=== PATIENT | female | born 1995 | race Caucasian/White ===

== ENCOUNTER → 2018-06-28 16:42 | Outpatient (CLI) | payer OTHER, SELFPAY ==
[2018-06-28 18:36] LABS: Vitamin B12 466 pg/mL (211-911); Vitamin D,25 Hydroxy 43.2 ng/mL (29.95-100.01)
[2018-06-28 19:14] LABS: Chlamydia Trachomatis by PCR Negative (Negative); Neisserai gonorrhoeae by PCR Negative (Negative); Probe Check PASS; Sample Adequacy Control PASS; Specimen Processing Control PASS
[2018-07-03 16:34] LABS: HPV Reflexed? NOT INDICATED
--- OUTSIDE RECORDS SUMMARY | 2018-09-02 12:07 | XMS RPT_ITS ---
:1995 Author Organization [facility] Care Team Providers Name Role Phone Jocelyn Braden Attending Unavailable Vickey Loza Attending Unavailable Primay Care Physicia, No Primary Care Unavailable PROBLEMS PROBLEMS DATE TYPE CONDITION / CODE ATTENDING STATUS SOURCE 06/28/2018 Unknown Z11.3 - Encounter Rose Braden for screening for [facility] infections with a Hospital predominantly Repository sexual mode of transmission / Z11.3(ICD-10) 06/28/2018 Unknown Z12.4 - Encounter Rose Braden for screening for [facility] malignant neoplasm Hospital of cervix / Repository Z12.4(ICD-10) 06/28/2018 Unknown Z01.419 - Encounter Rose Braden for gynecological [facility] examination Hospital (general) (routine) Repository without abnormal findings / Z01.419(ICD-10) 06/28/2018 Unknown E55.9 - Vitamin D Rose Braden deficiency, [facility] unspecified / Hospital E55.9(ICD-10) Repository PROCEDURES PROCEDURES No Procedure Records FoundRESULTS RESULTS EMERGENCY DEPARTMENT Observed: 07/06/2018 Status: F Source: [place] SUMMARY 11:19 PM [facility] REPOSITORY [facility] Medical Records Department [address] [place] [address] Emergency Department Summary 07/06/18 1935 MR#: [id number] Acct: [id number] Name: CATHERINE MARTINEZ Rep #: [id number] : 1995 From: Vickey Loza MD PCP: Care Physician, No Primary Status: DEP ER - ER Visit Summary Date of Service: 07/06/18 Chief Complaint: Possible occupational exposure History of Present Illness: The patient is a 22 F presenting due to concern for potential occupational exposure. Patient works at [employer], and had a child visit with her father known to be a fentanyl user. She reports that he was heavily intoxicated during the visit, and she did have to touch a couple of the things that he brought in including [place] bears for his kid in some clothing. Patient reports that about 1/2-hour to an hour after he left she had an onset of a headache. She reports that this was relatively gradual in onset, was a generalized headache, and then was associated with about 4-5 hours of blurry vision and photophobia afterwards. She states that she went to bed, and the headaches seem to feel better. She currently is menstruating. She does not really have a history of headaches in the past, denies any head injuries fevers or any neurologic signs or symptoms. Physical Examination: Vital signs are within normal limits, patient is afebrile. General: Patient is well-nourished well-developed and in no acute distress. Head: Normocephalic, atraumatic Eyes: Pupils equal round and reactive bilaterally, extra occular motion intact bialterally ENT: Moist mucous membranes Neck: Supple, no lymphadenopathy, no JVD, no meningismus CVS: Heart regular rate and rhythm, no murmurs, rubs or gallops, radial pulses 2+ bilaterally Resp: Respirations nondistressed, lung sounds clear bilaterally Abdomen: Soft, nontender, nondistended, no palpable masses, normal bowel sounds Back: Nontender Extremities: Nontender, atraumatic, active full range of motion, no peripheral edema Skin: warm, no rashes, no petechia Neuro: Alert and oriented x 4, CN 2-12 intact, no lateralizing neurological defecits Psyc: Normal affect Test Results: Toxicology screen pending Emergency Department Course and Treatment: Present patient presented secondary to a possible occupational exposure. If the patient was actually exposed to fentanyl like she thought, I do not believe that an exposure over 8 hours ago would be presenting with normal signs and symptoms at this point. Patient likely had an onset of a migraine headache. Toxicology was sent at the request of the patient's employer, and the patient was discharged. Disposition: Discharge Impression: 1. Potential occupational exposure This note was generated with spotflux dictation software. It may contain incorrect words, spelling, and punctuation that were not noted in review of the chart prior to signing ED Disposition - Plan for ED Patient: Disposition: Home or Assisted Living Chief Complaint: Occup Expose Diagnosis: Occupational exposure in workplace Instructions: ED Chemical Exp Skin Referrals: Corporate,Care [GROUP OF PHYSICIANS] - As Needed What to do if you have Problems For any increased pain, shortness of breath, bleeding, nausea or vomiting, chest pain, or any unexpected problems, contact your Primary Care Provider. Call [facility] ([phone]) or report to the closest Emergency Room. Call 911 if necessary. 07/06/18 [id number] <Electronically signed by Vickey Loza MD> Date Vickey Loza MD Cosigner Signature (If Indicated): Date CC: No Primary Care Physician URINE DRUG SCREEN Collected: 07/06/2018 Status: F Source: DOT (VISTA) 7:03 PM [facility] REPOSITORY TYPE CODE TESTS RESULT OUT OF RANGE REFERENCE UNITS LAB L505.0075 TO BE Normal CONFIRMED Result Comment: CONFIRMATORY TESTING FOR ALL POSITIVE URINE DRUG SCREEN RESULTS WILL ONLY BE SENT OUT UPON PHYSICIAN ORDER. VISTA Urine Drug Screen methods provide only preliminary analytical test results. A more specific alternate chemical method must be used in order to obtain a confirmed analytical result. Gas chromatography/mass spectrometery (GC/MS) is the preferred confirmatory method. Clinical consideration and professional judgement should be applied to any drug of abuse test result, particularly when preliminary positive results are used. URINE TCA TESTING MUST BE ORDERED SEPARATELY. USE TEST MNEMONIC: [facility] LAB L505.5005 VISTA UDS PH 6 Normal LAB L505.5015 <1000 ng/mL AMPHETAMINES Normal NEGATIVE LAB L505.5025 < 200 ng/mL BARBITIURATES Normal NEGATIVE LAB L505.5035 < 200 ng/mL BENZODIAZIPINE Normal NEGATIVE LAB L505.5045 < 300 ng/mL COCAINE Normal NEGATIVE LAB L505.5055 < 500 ng/mL ECSTACY Normal NEGATIVE LAB L505.5065 < 300 ng/mL METHADONE Normal NEGATIVE LAB L505.5075 < 300 ng/mL OPIATES Normal NEGATIVE LAB L505.5085 < 25 ng/mL PCP Normal NEGATIVE LAB L505.5095 < 50 ng/mL THC Normal NEGATIVE Performed By: #### L505.5000 #### [facility] [address] [place], [address] VITAMIN B12 Collected: 06/28/2018 Status: F Source: [place] 4:49 PM [facility] REPOSITORY TYPE CODE TESTS RESULT OUT OF RANGE REFERENCE UNITS LAB L503.0105 211-911 pg/mL Normal Vitamin B12 466 Performed By: #### L503.0105, L506.1000 #### [facility] [address] [place], [place], [address] VITAMIN D,25 HYDROXY Collected: 06/28/2018 Status: F Source: [place] 4:49 PM [facility] REPOSITORY TYPE CODE TESTS RESULT OUT OF RANGE REFERENCE UNITS LAB L506.1000 29.95-100.01 ng/mL Normal Vitamin D 43.2 25-OH Result Comment: Vitamin D 25(OH) Status Range Deficiency <20 ng/mL (50nmol/L) Insuffciency 20 - 30 ng/mL (50 - 75 nmol/L) Sufficiency 30 - 100 ng/mL (75 - 250 nmol/L) Toxicity >100 ng/mL (>250 nmol/L) Performed By: #### L503.0105, L506.1000 #### [facility] [address] [place], [place], [address] METHYLMALONIC ACID BLD Collected: 06/28/2018 Status: F Source: [place] 4:49 PM [facility] REPOSITORY TYPE CODE TESTS RESULT OUT OF RANGE REFERENCE UNITS LAB L7400.3000 Normal METHYLM [id number] Result Comment: TEST RESULT UNITS REF INTERVAL Methylmalonic Acid, Serum Methylmalonic Acid, Serum 139 nmol/L 0 - 378 Disclaimer: This test was developed and its performance characteristics determined by [facility]. It has not been cleared or approved by the Food and Drug Administration. TESTING PERFORMED AT [facility]. ORIGINAL REPORT ON FILE IN LAB CONTAINS ADDITIONAL TEST SITE INFORMATION. Performed By: #### L7400.3000 #### [facility] (refer to report for specific site) refer to report for address and phone number CT/NG [facility] BY PCR Collected: 06/28/2018 Status: F Source: [place] 2:10 PM [facility] REPOSITORY TYPE CODE TESTS RESULT OUT OF RANGE REFERENCE UNITS LAB L8200.2100 Negative Normal Chlam Negative Trac PCR LAB L8200.2200 Negative Normal NG by Negative PCR Performed By: #### L8200.2000 #### [facility] [address] [place], [address] PAP I-G W/RFX Collected: 06/28/2018 Status: F Source: [place] HRHPV-APTIMA 2:10 PM [facility] REPOSIT[facility] Order Comment: CYTOLOGY INFORMATION: - CLINICAL INFORMATION: - DATE LMP/MENOPAUSE: 05/09/18 LMP - COLLECTION VIAL: Thin Prep Vial - RADIO TIME BUYER SOURCE: CERVICAL/ENDOCERVICAL - COLLECTION TECHNIQUE: BRUSH/SPATULA Specimen Comment: [id number] Specimen Comment: Source.............Cervix;Endocervix Specimen Comment: LMP / Prev Treat...TAM=[id number] Specimen Comment: No. of containers..01 ThinPrep Vial TYPE CODE TESTS RESULT OUT OF RANGE REFERENCE UNITS LAB L7400.0800 . Normal DIAGN Comment Result Comment: NEGATIVE FOR INTRAEPITHELIAL LESION OR MALIGNANCY. THIS SPECIMEN WAS RESCREENED PART OF OUR RAIL FLAW DETECTOR OPERATOR PROGRAM. LAB L7400.0900 . Normal ADEQ Comment Result Comment: Satisfactory for evaluation. Endocervical and/or squamous metaplastic cells (endocervical component) are present. LAB L7400.1400 . Normal PERFORM Comment Result Comment: Yamilet Downs, Production Coordinator LAB L7400.1500 . Normal QC Comment REV Result Comment: Amanda Hutson, Supervisory Production Coordinator (ASCP) LAB L7400.2575 . Normal TEST METHOD Comment Result Comment: This liquid based ThinPrep(R) pap test was screened with the use of an image guided system. LAB L7400.2600 . Normal . COMM LAB L7400.2700 . Normal PAPSMR Comment Result Comment: The Pap smear is a screening test designed to aid in the detection of premalignant and malignant conditions of the uterine cervix. It is not a diagnostic procedure and should not be used as the sole means of detecting cervical cancer. Both false-positive and false-negative reports do occur. LAB L7400.2800 . Normal HPV RFLX Comment Result Comment: The HPV DNA reflex criteria were not met with this specimen result therefore, no HPV testing was performed. Performed at: [address] [id number] Mica Plate Layer: Rosibel Mac MD, Phone: [phone] Performed By: #### L7400.0353 #### [facility] (refer to report for specific site) refer to report for address and phone number ALLERGIES ALLERGIES DATE TYPE / CODE NAME / CODE REACTION SEVERITY SOURCE 07/06/2018 Drug No Known Unknown [facility] Allergy/4160 Allergies/F00 Hospital [address](SNOMED 2121958(RXNOR Repository CT) M) ENCOUNTERS ENCOUNTERS ADMIT/DISCHARGE ACCOUNT ADMITTING ENCOUNTER LOCATION SOURCE NUMBER CLASS 07/06/2018/ [id number] Emergency Dot [facility] [address] [facility] ing:ED Repository 06/28/2018 [id number] Ambulatory Dot [place] [address] [facility] ing:WOBLAB Repository PAYERS PAYERS ENCOUNTER GUARANTOR PAYER SUBSCRIBER SOURCE 07/06/2018 CATHERINEYOJANA BRUSH Primary CATHERINE [place] [id number] Insurance:OB NUSSBAUMDOB: Community NATHANAEL JIMENEZ [id number] Number: Repository [id number]: [phone] [id number] [phone] (HP) [id number] [address]HA: 07/06/2018 Secondary NOT GIVENUNK [place] Insurance:SELF PAY [facility] Number: Effective Repository Date:2018-07-06 06/28/2018 CATHERINE Primary DEON [place] [id number] Insurance:[employer] [address] icy Number: [place], [place] [id number] Repository [id number]: ([phone]) Date:[id number] [phone] () [address], [place] [address]PM: 06/28/2018 Secondary NOT GIVENUNK [place] Insurance:SELF PAY [facility] Number: Effective Repository Date:2018-06-28
== END ==
PROVIDERS: Visit Provider Obstetrics & Gynecology
DX: Z12.4 Encounter for screening for malignant neoplasm of cervix (principal); Z11.3 Encounter for screening for infections with a predominantly sexual mode of transmission; E55.9 Vitamin D deficiency, unspecified; R53.83 Other fatigue
CPT/HCPCS: 36415; 82306; 82607; 83921; 87491; 87591; 87624; 88175; G0145

== ENCOUNTER 2018-07-06 18:36 | Emergency (ER) | payer OTHER, SELFPAY ==
[2018-07-06 18:37] VITALS: BP 124/79; PULSE 92; RESP 16; TEMP 36.6; O2SAT 98; BMI 24.3
--- NOTE | 2018-07-06 19:35 | ED.VISSUMM ---
- ER Visit Summary Date of Service: 07/06/18 Chief Complaint: Possible occupational exposure History of Present Illness: The patient is a 22 F presenting due to concern for potential occupational exposure. Patient works at [employer], and had a child visit with her father known to be a fentanyl user. She reports that he was heavily intoxicated during the visit, and she did have to touch a couple of the things that he brought in including [place] bears for his kid in some clothing. Patient reports that about 1/2-hour to an hour after he left she had an onset of a headache. She reports that this was relatively gradual in onset, was a generalized headache, and then was associated with about 4-5 hours of blurry vision and photophobia afterwards. She states that she went to bed, and the headaches seem to feel better. She currently is menstruating. She does not really have a history of headaches in the past, denies any head injuries fevers or any neurologic signs or symptoms. Physical Examination: Vital signs are within normal limits, patient is afebrile. General: Patient is well-nourished well-developed and in no acute distress. Head: Normocephalic, atraumatic Eyes: Pupils equal round and reactive bilaterally, extra occular motion intact bialterally ENT: Moist mucous membranes Neck: Supple, no lymphadenopathy, no JVD, no meningismus CVS: Heart regular rate and rhythm, no murmurs, rubs or gallops, radial pulses 2+ bilaterally Resp: Respirations nondistressed, lung sounds clear bilaterally Abdomen: Soft, nontender, nondistended, no palpable masses, normal bowel sounds Back: Nontender Extremities: Nontender, atraumatic, active full range of motion, no peripheral edema Skin: warm, no rashes, no petechia Neuro: Alert and oriented x 4, CN 2-12 intact, no lateralizing neurological defecits Psyc: Normal affect Test Results: Toxicology screen pending Emergency Department Course and Treatment: Present patient presented secondary to a possible occupational exposure. If the patient was actually exposed to fentanyl like she thought, I do not believe that an exposure over 8 hours ago would be presenting with normal signs and symptoms at this point. Patient likely had an onset of a migraine headache. Toxicology was sent at the request of the patient's employer, and the patient was discharged. Disposition: Discharge Impression: 1. Potential occupational exposure This note was generated with [employer]Bro dictation software. It may contain incorrect words, spelling, and punctuation that were not noted in review of the chart prior to signing ED Disposition - Plan for ED Patient: Disposition: Home or Assisted Living Chief Complaint: Occup Expose Diagnosis: Occupational exposure in workplace Instructions: ED Chemical Exp Skin Referrals: Corporate,Care [GROUP OF PHYSICIANS] - As Needed
[2018-07-06 19:53] VITALS: BP 118/70; PULSE 80; RESP 14; O2SAT 98
[2018-07-06 20:07] LABS: Amphetamine Urine VISTA NEGATIVE (<1000 ng/mL); Barbiturate Urine VISTA NEGATIVE (< 200 ng/mL); Benzodiazepine Urine VISTA NEGATIVE (< 200 ng/mL); Cocaine Urine VISTA NEGATIVE (< 300 ng/mL); Ecstacy Urine VISTA NEGATIVE (< 500 ng/mL); Methadone Urine VISTA NEGATIVE (< 300 ng/mL); PCP Urine VISTA NEGATIVE (< 25 ng/mL); THC Urine VISTA NEGATIVE (< 50 ng/mL); Vista UDS pH Range 6
== END 2018-07-06 20:18 | disposition home or self-care (01) ==
LOC: ED 20:15
PROVIDERS: Emergency Provider Emergency Medicine
DX: R51 Headache (principal); H53.8 Other visual disturbances; H53.149 Visual discomfort, unspecified; Z79.899 Other long term (current) drug therapy
CPT/HCPCS: 80307; 99282

== ENCOUNTER → 2020-07-24 | Outpatient (CLI) | payer OTHER, SELFPAY ==
[2020-07-27 20:07] LABS: Chlamydia By Nucleic Acid AMP Negative (Negative)
[2020-07-27 21:17] LABS: Gonococcus By Nucleic Acid AMP Negative (Negative)
== END | disposition home or self-care (01) ==
LOC: LABSPEC 16:03
PROVIDERS: Visit Provider Obstetrics & Gynecology
DX: Z11.3 Encounter for screening for infections with a predominantly sexual mode of transmission (principal)
CPT/HCPCS: 87491; 87591